=== PATIENT | female | born 2000 | race African-American/Black ===

== ENCOUNTER 2024-12-23 00:51 | Emergency (ER) | payer OTHER, SELFPAY ==
[2024-12-23 01:07] VITALS: BP 128/79; PULSE 133; RESP 16; TEMP 36.8; O2SAT 96; BMI 41.0
--- NOTE | 2024-12-23 01:18 | XR_ITS ---
PROCEDURE INFORMATION: Exam: XR Chest Exam date and time: 12/23/2024 2:16 AM Age: 24 years old Clinical indication: Other: Lightheaded; Additional info: Lightheaded tachy TECHNIQUE: Imaging protocol: Radiologic exam of the chest. Views: 1 view. COMPARISON: No relevant prior studies available. FINDINGS: Lungs: Low lung volumes without definite focal airspace consolidation. Pleural spaces: No pneumothorax. Heart/Mediastinum: Unremarkable cardiomediastinal silhouette. Bones/joints: No acute osseous findings. IMPRESSION: Low lung volumes without definite focal airspace consolidation.
[2024-12-23] MEDS: ONDANSETRON 4MG ODT 8 MG SL (01:19)
--- NOTE | 2024-12-23 01:20 | ED_ITS ---
Discharge Plan Disposition Patient Disposition: Home, Self-Care Condition: Good Prescriptions Prescriptions: New ondansetron 4 mg tablet,disintegrating 4 mg PO Q6H PRN (Reason: nausea and vomiting) Qty: 7 0RF Activity Restrictions/Add. Instructions Additional Instructions/Restrictions: You were evaluated in the ER and are appropriate for discharge at this time. Drink plenty of fluids including water, Gatorade, Pedialyte. Take the prescribed Zofran if needed for nausea or vomiting. Avoid delta 8 and other synthetic cannabis products. Please avoid all illicit substances. Unfortunately you do not ever know what you are truly getting when you take illicit substances. Make an appointment with your primary care doctor for reevaluation in a few days. Return to the ER with new, worsening, or otherwise concerning symptoms. Clinical Impressions Clinical Impression: Synthetic cannabinoid abuse Instructions Patient Instructions: DI for Nausea -- Adult Discharge ED Provider: Federica Jones Adult HPI General Chief complaint: Nausea/Vomiting/Diarrhea Stated complaint: delta 8 gummy, dizziness, nausea Time Seen by Provider: 12/23/24 01:00 Mode of Arrival: Ambulatory Source of Information: Patient and Significant Other Description of Symptoms (Recalled from ER Triage Doc. by RN): Pt presents to ED for Nausea and dizziness after eating a Delta 8 gummy that she bought from a gas station. Pt states she ate the gummy approx 5 hours ago and the nausea & dizziness started approx 1 hr after ingestion. Pt is A&O*4 and partner is bedside. History of Present Illness HPI narrative: 24-year-old female presents to the ER with nausea and lightheadedness approximately 5 hours after ingesting a delta 8 gummy from the gas station. Patient reports she has never used these Gummies before. Patient reports symptoms started approximately 1 hour after ingestion and she has not had any improvement of symptoms since that time. She states she also feels drowsy. She denies any other ingestions or illicit substance use. Denies any chronic medical conditions, no daily medications, no known drug allergies. No vomiting. No other associated complaints or concerns. Related Data Previous Rx's ?Medication ?Instructions ?Recorded ondansetron 4 mg disintegrating 4 mg PO Q6H PRN nausea and 12/23/24 tablet vomiting #7 tabs Allergies Allergy/AdvReac Type Severity Reaction Status Date / Time No Known Allergies Allergy Verified 12/23/24 01:18 PFSH PFSH Disclaimer: The information contained in this section may have been updated after the patient was seen, as this information can be updated by other users. Social History Smoking Status: Unknown if ever smoked alcohol intake: never current occupational status: other Travel in the last 8 weeks?: None ROS Obtained: Yes Systems reviewed as appropriate & no additional complaints except as documented Per HPI Physical Exam General General appearance: alert, in no apparent distress and obese Head Head exam: atraumatic and normocephalic Eye Eye exam: Present PERRL and EOMI ENT ENT exam: Present mucous membranes moist Neck Neck exam: Present normal inspection and full ROM Chest Chest inspection: Present symmetric chest wall rise Respiratory Respiratory exam: Present normal lung sounds bilaterally; Absent respiratory distress, wheezes or stridor Cardiovascular Cardiovascular exam: Present normal rhythm and tachycardia Abdominal Exam Abdominal exam: Present soft; Absent distention or tenderness Extremities Exam Extremities exam: Present full ROM Neurological Exam Neurological exam: Present alert and oriented X3; Absent motor sensory deficit Psychiatric Psychiatric exam: Present normal affect and normal mood Skin Skin exam: Present warm and dry Medical Decision Making Medical Records Screening: Per USPSTF and CDC recommendations, given the prevalence of disease in our region, it is our hospital?s policy to screen for HIV and viral Hepatitis for all patients aged 18 and over and those with ongoing risk factors. Ghulam Inquiry Pt receiving controlled substance: No Vital Signs: 12/23/24 01:07 12/23/24 01:30 12/23/24 01:33 Temperature 98.3 F Temperature Source Oral Pulse Rate 123 H 120 H Pulse Rate [Left] 133 H Respiratory Rate 16 Blood Pressure 103/61 L 103/61 L Blood Pressure [Right Arm] 128/79 Blood Pressure Mean [Right Arm] 95 02 Sat by Pulse Oximetry 96 91 L 96 Oxygen Delivery Method Room Air Lab Data Lab Results 12/23/24 01:40: WBC 8.9, RBC 5.02, Hgb 12.9, Hct 38.3, MCV 76.3 L, MCH 25.7 L, MCHC 33.7, RDW 13.3, Plt Count 283, MPV 9.9, Neut % (Auto) 33.9 L, Lymph % (Auto) 58.8 H, [place] % (Auto) 5.4, Eos % (Auto) 1.2, Baso % (Auto) 0.4, Neut # (Auto) 3.0, Lymph # (Auto) 5.3 H, [place] # (Auto) 0.5, Eos # (Auto) 0.1, Baso # (Auto) 0.0, Sodium 137, Potassium 3.4 L, Chloride 105, Carbon Dioxide 26, Anion Gap 9.4, BUN 12, Creatinine 0.70, Estimated Creat Clear 191, Estimated GFR 102, Est GFR ( Amer) 123, Glucose 142 H, Calcium 9.0, Total Bilirubin 0.3, AST 25, ALT 16, Alkaline Phosphatase 76, Troponin I < 0.01, Total Protein 7.5, Albumin 4.6, Globulin 2.9, Albumin/Globulin Ratio 1.6, Serum HCG, Qual Negative 12/23/24 01:40 12/23/24 01:40 Orders (Tests/Meds): ED MEDICATIONS Discontinued Medications Generic Name Dose Route Start Last Admin Trade Name Freq PRN Reason Stop Dose Admin Lactated Ringer's 1,000 mls @ 999 mls/hr 12/23/24 01:18 12/23/24 01:35 Lactated Ringer's 1000 Ml Bag IV 12/23/24 02:18 999 mls/hr .Q1H1M ONE Administration Ondansetron HCl 8 mg 12/23/24 01:00 12/23/24 01:19 Ondansetron 4mg Odt SL 12/23/24 01:01 8 mg ONCE ONE Administration ORDERS Category Date Time Status CXR --portable [XR chest portable] Stat Exams 12/23/24 01:18 Taken CBC w/Auto Diff [Complete Blood Count Auto Diff] Stat Lab 12/23/24 01:40 Results CMP [Comprehensive Metabolic Panel] Stat Lab 12/23/24 01:40 Completed HCG Qualitative, Serum Stat Lab 12/23/24 01:40 Completed Trop I [Troponin I] Stat Lab 12/23/24 01:40 Completed Troponin I Q3H Lab 12/23/24 04:30 Ordered Troponin I Q3H Lab 12/23/24 07:30 Ordered Medical Decision Narrative: In summary, this 24-year-old female presents to the emergency department today with concerns of drowsiness, mild lightheadedness, nausea after delta 8 ingestion 5 hours ago. On initial evaluation patient is tachycardic but otherwise hemodynamically stable, afebrile, physical exam is otherwise benign, GCS 15 and neurologically intact. Differential diagnosis includes but is not limited to intoxication from synthetic cannabinoids, considered the possibility of coingestion which patient denies, I considered viral syndrome, dehydration, electrolyte abnormality, arrhythmia. Based on these concerns, I ordered serum labs, basic cardiac workup. ECG personally interpreted demonstrates sinus tachycardia, rate 123, normal axis, normal ND and QTc, no STEMI. Patient received IV fluids, Zofran for treatment. Labs personally reviewed demonstrate no leukocytosis or anemia, normal platelets, CMP nonactionable, troponin undetectably low less than 0.01. test negative. I have extremely low suspicion for cardiac problem since patient has no chest pain or shortness of breath, reassuring ECG. I do not believe serial troponin is indicated at this time XR personally interpreted demonstrates no acute intrathoracic abnormality, see radiology read for final interpretation. On reassessment patient's heart rate has improved since receiving fluids. She is resting more comfortably. I believe she is appropriate for discharge at this time. Zofran prescribed for outpatient management. Patient counseled on avoiding illicit substances including synthetic cannabinoids and other THC products. Patient was given instructions on symptomatic management, follow up instructions, and return precautions for the emergency department. Patient indicated understanding and was discharged in stable condition. Critical Care Critical Care Time Critical Care Time: No
--- NOTE | 2024-12-23 01:25 | ECG_ITS ---
APPROVED REPORT Exam: Resting ECG HR:123 bpm ECG Measurements Heart Rate 123 AXES MD 134 P 50 QRSd 82 QRS 38 QT 310 T 10 QTc 383 Conclusion SINUS TACHYCARDIA NONSPECIFIC T-WAVE ABNORMALITY No STEMI Electronically signed by : GUILLERMO KEENE, 12/23/2024 05:19:28
[2024-12-23 01:30] VITALS: BP 103/61; PULSE 123; O2SAT 91
[2024-12-23 01:33] VITALS: BP 103/61; PULSE 120; O2SAT 96
[2024-12-23] MEDS: LACTATED RINGERS 1000ML 1,000 ML 999 ML IV (01:35)
[2024-12-23 01:49] LABS: Basophils % 0.4 % (0.1-2.0); Eosinophils # 0.1 Kmm3 (0.0-0.4); Eosinophils % 1.2 % (0.1-12.0); Hematocrit 38.3 % (37.0-47.0); Hemoglobin 12.9 g/dL (12.2-16.2); Lymphocytes # 5.3 K/mm3 (0.7-4.5); Lymphocytes % 58.8 % (10-50); Mean Corpuscular HGB Conc 33.7 g/dL (31.8-35.4); Mean Corpuscular Hemoglobin 25.7 pg (27.0-31.2); Mean Corpuscular Volume 76.3 fl (81-99); Mean Platelet Volume 9.9 fl (7.4-10.4); Monocytes # 0.5 K/mm3 (0.1-1.0); Monocytes % 5.4 % (1.7-9.3); Neutrophils % 33.9 % (37.0-80.0); Nucleated Red Blood Cells # 0 10^3/uL; Nucleated Red Blood Cells % 0 %; Platelet Count 283 K/mm3 (142-424); Red Blood Count 5.02 M/mm3 (4.20-5.40); Red Cell Distribution Width 13.3 % (11.5-17.5); Red Cell Distribution Width-SD 36.2 fL; White Blood Count 8.9 K/mm3 (4.8-10.8)
[2024-12-23 01:51] LABS: MANUAL DIFFERENTIAL MANUAL DIFFERENTIAL (MANUAL DIFF)
[2024-12-23 02:07] LABS: Alanine Aminotransferase 16 U/L (12-78); Albumin Level 4.6 g/dl (3.5-5.0); Albumin/Globulin Ratio 1.6 (1.1-1.8); Alkaline Phosphatase 76 U/L (38-126); Anion Gap 9.4 mEq/L (5-15); Aspartate Amino Transferase 25 U/L (14-36); Bilirubin,Total 0.3 mg/dl (0.2-1.3); Blood Urea Nitrogen 12 mg/dl (7-17); Carbon Dioxide 26 mmol/L (22.0-30.0); Chloride 105 mmol/L (98-107); Creatinine Clearance Estimated 191 mL/min (50-200); Estimated Glomerular Filt Rate 102 ml/min (>60); GFR (African American) 123 ML/MIN (>60); Globulin 2.9 g/dL (1.3-3.2); Glucose 142 mg/dl (74-100); HCG Qualitative, Serum Negative (Negative); Potassium 3.4 mmoL/L (3.5-5.1); Sodium 137 mmol/L (136-145); Total Protein,Serum 7.5 g/dl (6.3-8.2)
[2024-12-23 02:22] LABS: Troponin I < 0.01 ng/ml (0.00-0.034)
[2024-12-23 02:48] VITALS: BP 119/66; PULSE 110; RESP 16; TEMP 36.6; O2SAT 100
[2024-12-23 02:49] LABS: Lymphocytes % 60 % (10-50); Monocytes % 1 % (2-9); Neutrophils % 39 % (42-76); Platelet Estimate Normal; Stomatocytes 1+; Total Cells Counted 100
== END 2024-12-23 02:57 | disposition home or self-care (01) ==
LOC: ER 02:39
PROVIDERS: Emergency Provider Emergency Medicine
DX: F19.90 Other psychoactive substance use, unspecified, uncomplicated (principal); R00.0 Tachycardia, unspecified; R42 Dizziness and giddiness; R11.0 Nausea
CPT/HCPCS: 71045; 80053; 84484; 84703; 85007; 85025; 85027; 93005; 96360; 99284; J7120; Q0162

== ENCOUNTER 2024-12-24 11:40 | Emergency (ER) | payer OTHER, SELFPAY ==
[2024-12-24 11:48] VITALS: BP 134/74; PULSE 89; RESP 16; TEMP 36.5; O2SAT 97; BMI 40.6
[2024-12-24] MEDS: 0.9 % SODIUM CHLORIDE 1000ML 1,000 ML 999 ML IV (12:29)
--- NOTE | 2024-12-24 12:29 | PC.NURSE ---
I rounded on the pt and took her a warm blanket for comfort. no needs voiced. no new complaints. call harris in reach.
--- NOTE | 2024-12-24 12:36 | ED_ITS ---
Discharge Plan Disposition Patient Disposition: Home, Self-Care Chief Complaint: Weakness Prescriptions Prescriptions: No Action ondansetron 4 mg tablet,disintegrating 4 mg PO Q6H PRN (Reason: nausea and vomiting) Qty: 7 0RF Referrals Follow up/Referrals: Provider,Referral, [Primary Care Provider] - See instructions Activity Restrictions/Add. Instructions Additional Instructions/Restrictions: Follow-up with your family doctor regarding this visit to the emergency department as needed. Discontinue using THC to prevent further symptoms. Clinical Impressions Clinical Impression: Generalized weakness, Dry mouth Print Language Print Language: Bahamian Discharge ED Provider: Modesto Lyons General Adult HPI General Chief complaint: Weakness Stated complaint: Fatigue, Dry mouth, Weakness- Pt took Delta9 Time Seen by Provider: 12/24/24 11:54 Mode of Arrival: Ambulatory Source of Information: Patient Description of Symptoms (Recalled from ER Triage Doc. by RN): Lightheaded, dry mouth, fatigue x2 days. Patient denies pain. Here 2 days prior with similar symptoms. History of Present Illness HPI narrative: Please note that above description of symptoms, in this electronic medical record under categorization of recalled from ER triage doctor by RN are reflective of an initial nursing assessment, however, is not reflective of my full history and physical exam that was personally taken and clarified. Consequentially, this preceding description of symptoms, which may include the patient's categorized chief complaint in the EMR, do not reflect my personal clinical impression, and the ultimate description of history of present illness and patient stated complaints should be deferred to this section of the note. Unless stated otherwise or congruent with this section of the note, additional signs, symptoms, or incongruence should be interpreted as inaccurate with my clinical impression. Related Data Previous Rx's ?Medication ?Instructions ?Recorded ondansetron 4 mg disintegrating 4 mg PO Q6H PRN nausea and 12/23/24 tablet vomiting #7 tabs Allergies Allergy/AdvReac Type Severity Reaction Status Date / Time No Known Allergies Allergy Verified 12/24/24 11:58 [facility] Disclaimer: The information contained in this section may have been updated after the patient was seen, as this information can be updated by other users. Social History (Updated 12/23/24 @ 02:34 by Federica Jones MD) Smoking Status: Never smoker alcohol intake: never current occupational status: other Travel in the last 8 weeks?: None Have you lived/traveled outside [place] in past 30 days?: No Contact w/someone who lives/traveled outside [place] past 30 days?: No Exposure to someone with infectious disease in past 14 days?: No Do you have a fever (greater than 100.4 F or 38 C)?: No Have you tested positive for COVID-19?: No Exposed to someone with COVID-19 in past 14 days?: No Do you have a sore throat?: No Do you have a cough?: No Do you have any weakness?: Yes Do you have any diarrhea?: No Are you experiencing any unusual bleeding?: No Do you have any muscle aches/pain?: No Do you have any abdominal pain?: No Are you experiencing loss of taste or smell?: No ROS Obtained: Yes All systems reviewed & no additional complaints except as documented Physical Exam General General appearance: alert Head Head exam: atraumatic and normocephalic Eye Eye exam: Present normal appearance, PERRL and EOMI Neck Neck exam: Present normal inspection, full ROM and trachea midline Respiratory Respiratory exam: Absent respiratory distress, wheezes, stridor, accessory muscle use or prolonged expiratory phase Cardiovascular Cardiovascular exam: Present other (Pulses equal symmetric in upper and lower extremities) Abdominal Exam Abdominal exam: Present soft; Absent distention, tenderness or pulsatile mass Extremities Exam Extremities exam: Absent edema Neurological Exam Neurological exam: Present alert, oriented X3 and CN II-XII intact; Absent motor sensory deficit Skin Skin exam: Present warm and dry; Absent diaphoresis or erythema Medical Decision Making Medical Records Medical records reviewed: Yes I reviewed the patient's medical records. Screening: Per USPSTF and CDC recommendations, given the prevalence of disease in our region, it is our hospital?s policy to screen for HIV and viral Hepatitis for all patients aged 18 and over and those with ongoing risk factors. Ghulam Inquiry Pt receiving controlled substance: No Ghulam was queried for this patient: No Vital Signs: 12/24/24 11:48 12/24/24 12:45 Temperature 97.7 F Temperature Source Tympanic Pulse Rate 77 Pulse Rate [Right] 89 Respiratory Rate 16 Blood Pressure 101/71 L Blood Pressure [Right Arm] 134/74 Blood Pressure Mean 80 Blood Pressure Mean [Right Arm] 94 Blood Pressure Source [Right Arm] Automatic Cuff 02 Sat by Pulse Oximetry 97 100 Oxygen Delivery Method Room Air Lab Data Lab Results 12/24/24 12:24: WBC 5.8 D, RBC 5.17, Hgb 13.1, Hct 39.9, MCV 77.2 L, MCH 25.3 L , MCHC 32.8, RDW 13.7, Plt Count 271, MPV 10.2, Neut % (Auto) 56.4, Lymph % (Auto) 36.6, [place] % (Auto) 3.3, Eos % (Auto) 3.1, Baso % (Auto) 0.3, Neut # (Auto) 3.3, Lymph # (Auto) 2.1, [place] # (Auto) 0.2, Eos # (Auto) 0.2, Baso # (Auto) 0.0, Sodium 142, Potassium 3.9, Chloride 108 H, Carbon Dioxide 28, Anion Gap 9.9, BUN 6 L D, Creatinine 0.70, Estimated Creat Clear 189, Estimated GFR 102, Est GFR ( Amer) 123, Glucose 104 H, Calcium 9.5, Total Bilirubin 0.4, AST 24, ALT 16, Alkaline Phosphatase 79, Total Protein 7.9, Albumin 4.5, G lobulin 3.4 H, Albumin/Globulin Ratio 1.3, HCG, Quant < 2 12/24/24 13:01: Urine Color Yellow, Urine Appearance Clear, Urine pH 7.5, Ur Specific [place] 1.020, Urine Protein Negative, Urine Glucose (UA) Negative, Urine Ketones Negative, Urine Blood Negative, Urine Nitrate Negative, Urine Bilirubin Negative, Urine Urobilinogen 1.0, Ur Leukocyte Esterase Negative 12/24/24 12:24 12/24/24 12:24 Orders (Tests/Meds): ED MEDICATIONS Discontinued Medications Generic Name Dose Route Start Last Admin Trade Name Freq PRN Reason Stop Dose Admin Sodium Chloride 1,000 mls @ 999 mls/hr 12/24/24 12:05 12/24/24 12:29 Sod Chlor 0.9% 1000ml Bag IV 12/24/24 13:05 999 mls/hr .Q1H1M ONE Administration ORDERS Category Date Time Status CBC w/Auto Diff [Complete Blood Count Auto Diff] Stat Lab 12/24/24 12:24 Completed CMP [Comprehensive Metabolic Panel] Stat Lab 12/24/24 12:24 Completed HCG,Quantitative Stat Lab 12/24/24 12:24 Completed UA [Urinalysis and Microscopic] Stat Lab 12/24/24 13:01 Results Medical Decision Narrative: Clinically well-appearing 24-year-old female presenting with complaints after intoxication. She states that she took a delta 9 THC gummy on 12/22 2 nights ago. The next that she has the effect still lingering. States she has generalized weakness, dry mouth, decreased appetite secondary to dry mouth, and sluggishness. No chest pain, shortness of breath, hallucinations, abdominal pain, chest pain, other intoxication, or any other changes since about 48 hours prior to this. History obtained with patient and chart review. On arrival, very clinically well, but slow to respond, I do not know her baseline, this may be normal. Neuro intact, answering questions appropriately, alert and oriented. Pupils equal and reactive. Cardiopulmonary and abdominal exams are normal. Unremarkable exam overall. Differential includes intoxication, withdrawal, other substance abuse, among others. Asking for labs to verify that nothing has gone wrong. These were ordered. On independent interpretation, nonactionable hematologic labs, negative test, urinalysis unremarkable. Patient given fluids in the meantime. On reevaluation, feeling largely baseline, but appropriate for discharge. Because patient at baseline without signs or symptoms of clinical decompensation, deemed appropriate for discharge. Results were relayed to patient who voiced understanding and were agreeable to outpatient management and follow up. I discussed my clinical impression with patient and answered all questions. At this time, the evidence for any other entities in the differential is insufficient to warrant any further testing or ED observation. This was explained as well. Advisory was given that persistent or worsening symptoms require further evaluation. I confirmed the understanding of this discussion. Air Export Agent disclaimer Much of this encounter note is an electronic sr. vendor management associate spoken language to printed text. Electronic sr. vendor management associate of the spoken language may permit errors. Although I have reviewed the note, some errors may still exist. Critical Care Critical Care Time Critical Care Time: No
[2024-12-24 12:37] LABS: Basophils % 0.3 % (0.1-2.0); Eosinophils # 0.2 Kmm3 (0.0-0.4); Eosinophils % 3.1 % (0.1-12.0); Hematocrit 39.9 % (37.0-47.0); Hemoglobin 13.1 g/dL (12.2-16.2); Lymphocytes # 2.1 K/mm3 (0.7-4.5); Lymphocytes % 36.6 % (10-50); Mean Corpuscular HGB Conc 32.8 g/dL (31.8-35.4); Mean Corpuscular Hemoglobin 25.3 pg (27.0-31.2); Mean Corpuscular Volume 77.2 fl (81-99); Mean Platelet Volume 10.2 fl (7.4-10.4); Monocytes # 0.2 K/mm3 (0.1-1.0); Monocytes % 3.3 % (1.7-9.3); Neutrophils # 3.3 K/mm3 (1.8-7.8); Neutrophils % 56.4 % (37.0-80.0); Nucleated Red Blood Cells # 0 10^3/uL; Nucleated Red Blood Cells % 0 %; Platelet Count 271 K/mm3 (142-424); Red Blood Count 5.17 M/mm3 (4.20-5.40); Red Cell Distribution Width 13.7 % (11.5-17.5); Red Cell Distribution Width-SD 38.3 fL; White Blood Count 5.8 K/mm3 (4.8-10.8)
[2024-12-24 12:43] LABS: Chloride 108 mmol/L (98-107)
[2024-12-24 12:44] LABS: Albumin Level 4.5 g/dl (3.5-5.0); Potassium 3.9 mmoL/L (3.5-5.1); Sodium 142 mmol/L (136-145)
[2024-12-24 12:45] VITALS: BP 101/71; PULSE 77; O2SAT 100
[2024-12-24 12:46] LABS: Alanine Aminotransferase 16 U/L (12-78); Anion Gap 9.9 mEq/L (5-15); Aspartate Amino Transferase 24 U/L (14-36); Blood Urea Nitrogen 6 mg/dl (7-17); Carbon Dioxide 28 mmol/L (22.0-30.0); Creatinine Clearance Estimated 189 mL/min (50-200); Estimated Glomerular Filt Rate 102 ml/min (>60); GFR (African American) 123 ML/MIN (>60)
[2024-12-24 12:47] LABS: Albumin/Globulin Ratio 1.3 (1.1-1.8); Alkaline Phosphatase 79 U/L (38-126); Bilirubin,Total 0.4 mg/dl (0.2-1.3); Calcium 9.5 mg/dl (8.4-10.2); Globulin 3.4 g/dL (1.3-3.2); Glucose 104 mg/dl (74-100); Total Protein,Serum 7.9 g/dl (6.3-8.2)
[2024-12-24 13:07] LABS: Microscopic, Urine URINE MICROSCOPIC (MICROSCOPIC)
[2024-12-24 13:12] LABS: HCG,Quantitative < 2 mIU/ml (0-5.42)
[2024-12-24 13:22] LABS: Appearance,Urine CLEAR (Clear); Bilirubin,Urine Negative (Negative); Blood, Urine Negative (Negative); Color,Urine YELLOW (Yellow); Glucose,Urine (UA) Negative (Negative); Ketones,Urine Negative (Negative); Leukocyte Esterase,Urine Negative (Negative); Nitrate,Urine Negative (Negative); PH,Urine 7.5 (5.0-8.5); Protein,Urine Negative (Negative)
[2024-12-24 13:38] VITALS: BP 112/68; PULSE 82; RESP 20; TEMP 36.8; O2SAT 99
[2024-12-24 13:47] LABS: Bacteria,Urine Trace /lpf; WBC,Urine Occasional #/hpf (0-3)
== END 2024-12-24 13:39 | disposition home or self-care (01) ==
PROVIDERS: Emergency Provider Emergency Medicine
DX: R53.1 Weakness (principal); R42 Dizziness and giddiness; R53.83 Other fatigue
CPT/HCPCS: 80053; 81001; 84702; 85025; 96360; 99284; J7030